=== PATIENT | male | born 1975 | race American Indian/Alaskan Native ===

== ENCOUNTER 2019-01-06 00:56 | Emergency (ER) | payer SELFPAY ==
[2019-01-06 03:00] LABS: Basophils % (Auto) 0.7 % (0.0-1.8); Eosinophils # (Auto) 0.3 K/mm3 (0.0-0.4); Eosinophils % (Auto) 4.3 % (0.0-4.3); Hematocrit 49.6 % (35.5-45.6); Hemoglobin 16.8 gm/dl (11.8-15.2); Lymphocytes # (Auto) 2.3 K/mm3 (1.2-5.4); Lymphocytes % (Auto) 36.7 % (13.4-35.0); Mean Corpuscular HGB Conc 34 % (32-34); Mean Corpuscular Volume 97 fl (84-94); Monocytes # (Auto) 0.7 K/mm3 (0.0-0.8); Monocytes % (Auto) 11.9 % (0.0-7.3); Platelet Count 220 K/mm3 (140-440); Red Blood Count 5.11 M/mm3 (3.65-5.03); Red Cell Distribution Width 13.6 % (13.2-15.2)
[2019-01-06 03:13] LABS: BUN/Creatinine Ratio 27; Blood Urea Nitrogen 19 mg/dL (9-20); Calcium 9.6 mg/dL (8.4-10.2); Hemolysis Index 28
[2019-01-06 03:18] LABS: Bilirubin,Urine NEG (Negative); Blood,Urine LG (Negative); Color,Urine Yellow (Yellow); Mucus,Urine 1+ /HPF; Protein,Urine <15 mg/dL mg/dL (Negative); Urobilinogen,Urine < 2.0 mg/dL (<2.0)
--- NOTE | 2019-01-06 03:24 | Emergency Department Report ---
ED Psych HPI - General Chief Complaint: Psych Stated Complaint: MH,AUDITORY HALLUCINATIONS Time Seen by Provider: 01/06/19 02:27 Source: patient Mode of arrival: Ambulatory - History of Present Illness Initial Comments: This is a 43-year-old male nontoxic, well nourished in appearance, no acute signs of distress presents to the ED with c/o of depression with audio hallucinations and SI. Patient stated he has been out of his medications for about 2 weeks. Patient stated has a plan for SI. Stated, "burn chalk and inhaler to ". Patient denies any homicidal ideation. Patient denies any fever, chills, nausea, vomiting, chest pain, shortness of breath, headache or stiff neck. Patient otherwise denies any symptoms. Denies any alcohol or drug consumption. Patient denies any allergies. MD Complaint: suicidal ideation, feels depressed, other (audio elucidation) -: days(s) Associated Psychiatric Symptoms: depression, suicidal ideation, auditory hallucinations History of same: Yes Quality: constant Improves With: none Worsens With: none Associated Symptoms: denies other symptoms. denies: confusion, headache, shortness of breath, nausea, vomiting, syncope, insomnia If Self Harm: admits thoughts of, has plan ED Review of Systems ROS: Stated complaint: MH,AUDITORY HALLUCINATIONS Other details as noted in HPI Constitutional: denies: chills, fever Eyes: denies: eye pain, eye discharge, vision change ENT: denies: ear pain, throat pain Respiratory: denies: cough, shortness of breath, wheezing Cardiovascular: denies: chest pain, palpitations Endocrine: no symptoms reported Gastrointestinal: denies: abdominal pain, nausea, diarrhea Genitourinary: denies: urgency, dysuria Musculoskeletal: denies: back pain, joint swelling, arthralgia Skin: denies: rash, lesions Neurological: denies: headache, weakness, paresthesias Psychiatric: depression, auditory hallucinations, suicidal thoughts. denies: anxiety, visual hallucinations, homicidal thoughts Hematological/Lymphatic: denies: easy bleeding, easy bruising ED Physical Exam - General Limitations: No Limitations General appearance: alert, in no apparent distress - Head Head exam: Present: atraumatic, normocephalic - Neck Neck exam: Present: normal inspection, full ROM. Absent: tenderness, meningismus, lymphadenopathy - Respiratory Respiratory exam: Present: normal lung sounds bilaterally. Absent: respiratory distress, wheezes, rales, rhonchi, stridor, chest wall tenderness, accessory muscle use, decreased breath sounds, prolonged expiratory - Cardiovascular Cardiovascular Exam: Present: regular rate, normal rhythm, normal heart sounds. Absent: irregular rhythm, systolic murmur, diastolic murmur, rubs, gallop - GI/Abdominal GI/Abdominal exam: Present: soft, normal bowel sounds. Absent: distended, tenderness - Extremities Exam Extremities exam: Present: normal inspection, full ROM - Back Exam Back exam: Present: normal inspection, full ROM - Neurological Exam Neurological exam: Present: alert, oriented X3, normal gait - Psychiatric Psychiatric exam: Present: depressed, flat affect, suicidal ideation. Absent: agitated, anxious, manic, homicidal ideation ED Course - Reevaluation(s) Reevaluation #1: 01/06/19 03:24 Patient is speaking in full sentences with no signs of distress noted. ED Medical Decision Making - Lab Data Result diagrams: 01/06/19 02:44 01/06/19 02:44 - Medical Decision Making This is a 43-year-old male that presents with SI and audio hallucinations. Patient is currently stable and was examined by me. Patient has been placed on 1013 and patient to be examined and evaluated by psychiatrist. Patient will remain in the ER until cleared by psychiatry. At time of admission, the patient does not seem toxic or ill in appearance. No acute signs of distress noted. Patient agrees to admission treatment plan of care. No further questions noted by the patient. Critical care attestation.: If time is entered above; I have spent that time in minutes in the direct care of this critically ill patient, excluding procedure time. ED Disposition Clinical Impression: Suicidal ideation, Auditory hallucination Disposition: [id number] PSY HOSP/PSY UNIT Is pt being admited?: No Condition: Stable
[2019-01-06 03:26] LABS: Amphetamine Screen,Urine PRESUMPTIVE NEGATIVE; Benzodiazepines Screen,Urine PRESUMPTIVE NEGATIVE; Cannabinoid Screen,Urine PRESUMPTIVE NEGATIVE; Cocaine Screen,Urine PRESUMPTIVE NEGATIVE; Methadone Screen,Urine PRESUMPTIVE NEGATIVE; Opiate Screen,Urine PRESUMPTIVE NEGATIVE
--- NOTE | 2019-01-06 10:19 | Consultation ---
History of Present Illness - Reason for Consult Consult date: 01/06/19 Reason for consult: Mental Health Evaluation Requesting physician: BARBARA CARTAGENA - Chief Complaint Chief complaint: "I hope it well be okay" - History of Present Psychiatric Illness 43 y.o. AA male who presented to the ER for SI's and AH's. Today the patient was calm, but guarded during the assessment. He would answer some questions asked of him. He is adamant that he is hearing voices. He could not elaborate about what the voices are saying. He stated that he have not been complaint with his psy medication in 2 weeks (Abilify). Overall, the patient was somewhat uncooperative throughout the interview. He would not confirm or deny SI's. Medications and Allergies Allergies Allergy/AdvReac Type Severity Reaction Status Date / Time No Known Allergies Allergy Unverified 01/06/19 05:22 Home Medications Medication Instructions Recorded Confirmed Last Taken Type Abilify 10 mg PO DAILY 01/06/19 01/06/19 Unknown History Norvasc 5 mg PO DAILY 01/06/19 01/06/19 Unknown History Past psychiatric history - Past Medical History Past Medical History: No medical history Past Surgical History: No surgical history - past Psychiatric treatment and history psychiatric treatment history: Several inpatient psy settings in the past. Denies a fam psy hx. - Social History Social history: other (Reside at a longterm) Mental Status Exam - Vital signs Last Vital Signs Temp 98.4 F 01/06/19 08:10 Pulse 77 01/06/19 08:10 Resp 18 01/06/19 08:10 BP 114/80 01/06/19 08:10 Pulse Ox 99 01/06/19 08:10 - Exam Narrative exam: MSE: Appearance: in hospital attire Behavior: poor eye contact Speech: regular rate and low tone Mood: guarded Affect: flat Thought Process: unable to fully assess Thought Content: the patient would confirm or deny SI's Motor Activity: sitting in a chair Cognition: A/O x 3 Insight: variable Judgment: poor Results Result Diagrams: 01/06/19 02:44 01/06/19 02:44 Abnormal lab results 01/06/19 01/06/19 01/06/19 Range/Units 02:44 02:44 02:44 RBC 5.11 H (3.65-5.03) M/mm3 Hgb 16.8 H (11.8-15.2) gm/dl Hct 49.6 H (35.5-45.6) % MCV 97 H (84-94) fl MCH 33 H (28-32) pg Lymph % (Auto) 36.7 H (13.4-35.0) % Quay % (Auto) 11.9 H (0.0-7.3) % Creatinine 0.7 L (0.8-1.5) mg/dL Salicylates < 0.3 L (2.8-20.0) mg/dL Acetaminophen (10.0-30.0) ug/mL 01/06/19 Range/Units 02:44 RBC (3.65-5.03) M/mm3 Hgb (11.8-15.2) gm/dl Hct (35.5-45.6) % MCV (84-94) fl MCH (28-32) pg Lymph % (Auto) (13.4-35.0) % Quay % (Auto) (0.0-7.3) % Creatinine (0.8-1.5) mg/dL Salicylates (2.8-20.0) mg/dL Acetaminophen < 5.0 L (10.0-30.0) ug/mL All other labs normal. Assessment and Plan Assessment and plan: Impression: Unspecified Mood DO with psy features. Today the patient was calm, but guarded during the assessment. UDS was negative. DDx: MDD with psychosis, Bipolar DO with psychosis, SCAD Recommendation/Plan: Continue 1013 and start Abilify 5 mg PO daily for psychosis/mood. Discussed possible metabolic side effects from Abilify with the patient, he verbalized understanding. A1c /Lipid Panel ordered for the AM. line of sight for safety ordered. Dispo: The patient was referred to inpatient psy services. Will staff with Dr Rupert Bardales.
[2019-01-06] MEDS: ARIPiprazole 5 MG TAB PO SCH (12:09)
[2019-01-06] MEDS ORDERED: LORazepam 1 MG TAB PO ONE (14:28)
[2019-01-07] MEDS: ARIPiprazole 5 MG TAB PO SCH (10:50)
--- NOTE | 2019-01-07 15:31 | Progress Note ---
Subjective - Reason for Consult Consult date: 01/07/19 Reason for consult: follow up - Chief Complaint Chief complaint: "I'm feeling better." 43 y.o. AA male who presented to the ER for SI's and AH's. He acknowledged auditory hallucinations and suicidal ideation. He would not provide details. He wants to keep taking abilify. No behavioral disturbances reported by staff. Mental Status Exam - Vital signs Last Vital Signs Temp 98.1 F 01/07/19 07:35 Pulse 69 01/07/19 07:35 Resp 18 01/07/19 07:35 BP 109/73 01/07/19 07:35 Pulse Ox 99 01/07/19 07:35 - Exam Narrative exam: MSE: Appearance: in hospital attire Behavior: poor eye contact Speech: regular rate and low tone Mood: guarded Affect: flat Thought Process: logical Thought Content: suicidal ideation. auditory hallucinations Motor Activity: sitting in a chair Cognition: A/O x 3 Insight: variable Judgment: poor Assessment and Plan 43 y.o. AA male who presented to the ER for SI's and AH's. Impression: Unspecified Mood DO with psy features. Today the patient was calm, but guarded during the assessment. UDS was negative. He refused additional labs for lipid panel and A1c DDx: MDD with psychosis, Bipolar DO with psychosis, SCAD Recommendation/Plan: Continue 1013 and continueAbilify 5 mg PO daily for psychosis/mood. Leif Flores NP discussed possible metabolic side effects from Abilify with the patient, he verbalized understanding. Dispo: The patient was referred to inpatient psy services. Will staff with Dr Rupert Bardales.
[2019-01-07 21:18] VITALS: BP 129/83
== END 2019-01-07 23:00 ==
LOC: ED 00:56 → EEVIPCON 00:56 → ED 01-07 23:00
DX: F39 Unspecified mood [affective] disorder (principal); F32.9 Major depressive disorder, single episode, unspecified; R44.0 Auditory hallucinations
CPT/HCPCS: 36415; 80048; 80307; 80320; 81001; 83036; 85025; G0480